=== PATIENT | female | born 1980 | race African-American/Black ===

== ENCOUNTER 2021-03-01 18:49 | Emergency (ER) | payer OTHER, SELFPAY ==
--- NOTE | ~2021-03-01 | XR_ITS ---
XR elbow RT min 3V 03/01/2021 19:26 INDICATION: Right elbow pain PROCEDURE: 4 views right elbow COMPARISON: No prior studies for comparison. FINDINGS: Fracture, dislocation or subluxation is not identified. The soft tissues appear within norm al limits. No foreign bodies are identified. IMPRESSION: 1: NO ACUTE BONE OR JOINT ABNORMALITY IDENTIFIED. 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
--- NOTE | ~2021-03-01 | XR_ITS ---
XR shoulder RT min 2V 03/01/2021 19:27 INDICATION: Right shoulder pain PROCEDURE: 4 views right shoulder COMPARISON: No prior studies for comparison. FINDINGS: Fracture, dislocation or subluxation is not identified. The soft tissues appear within norm al limits. No foreign bodies are identified. IMPRESSION: 1: NO ACUTE BONE OR JOINT ABNORMALITY IDENTIFIED. 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
--- NOTE | 2021-03-01 18:59 | ED.UPPEXIN ---
HPI - Extremity Injury (Upper) General Chief Complaint: Extremity Injury, Upper Stated Complaint: Right shoulder injury at work Time Seen by Provider: 03/01/21 18:59 Source: patient and RN notes reviewed Mode of arrival: ambulatory Limitations: no limitations History of Present Illness HPI narrative: 41-year-old female presents to the [facility] with complaints of right arm pain. States on Friday, 2 days ago an elevator door closed on her arm. Patient has full range of motion of the elbow and the shoulder. Also has full range of motion of the wrist. Strong flat surfacer jewel noted. Positive radial pulse noted. Capillary refill under 2 seconds. No bruising, redness, swelling noted on exam. Related Data Allergies Allergy/AdvReac Type Severity Reaction Status Date / Time No Known Allergies Allergy Verified 03/01/21 19:07 Review of Systems Review of Systems: All systems reviewed & are unremarkable except as noted in HPI and below Constitutional: Constitutional: Reports no additional constitutional complaints, Denies chills and Denies fever(s) Eyes: Eyes: Reports no additional eye complaints ENT: Reports system reviewed and no additional complaints, except as documented Cardiovascular: Cardiovascular: Reports no additional cardiovascular complaints and Denies chest pain Respiratory: Respiratory: Reports no additional respiratory complaints, Denies cough and Denies dyspnea Gastrointestinal: Gastrointestinal: Reports no additional gastrointestinal complaints Musculoskeletal: Musculoskeletal: Reports as per HPI Comments: Tenderness from mid forearm up into shoulder with palpation. Integumentary/Breasts: Skin/Breast: Reports system reviewed and no additional complaints, except as docu, Denies erythema and Denies rash Neurologic: Reports system reviewed and no additional complaints, except as documented Psychiatric: Psychiatric: Reports no additional psychiatric complaints Allergic/Immunologic: Allergic/Immunologic: Reports no additional allergic/immunologic complaints [facility] Past Medical History Medical History (Updated 03/01/21 @ 19:44 by Beth Story) Patient denies medical problems Surgical History Surgical History (Updated 03/01/21 @ 19:44 by Beth Story) No significant past surgical history Social History Social History (Updated 03/01/21 @ 19:44 by Beth Story) Living arrangements: with family Gender identity (if verbalized by the patient): Female Comments At the time of my signature, I reviewed and agree with the nursing past medical, surgical, social, and family history. There is no relevant family history pertinent to the patient complaint. Exam Const: General: healthy appearing, no acute distress and alert Nutritional Appearance: well nourished and obese Orientation/consciousness: patient oriented x3 Limitations: no limitations HENMT: Head: normal to inspection Eyes: Pupils: Equal, round and reactive pupils present Neck: Neck: normal visual inspection, no lymphadenopathy and no meningeal signs Chest: Chest palpation & inspection: normal inspection of the chest Resp: Effort & Inspection: normal respiratory effort and no use of accessory muscles Auscultation: clear to auscultation bilaterally, no crackles, no rales, no rhonchi and no wheezes Cardio: Rate: regular rate Rhythm: regular rhythm Back/Spine/Pelvis: Back: no CVA tenderness Skin: General skin exam: normal color, skin not dry and no erythema Lesions: no lesions Rashes: no rashes Trauma: no lacerations or abrasions, no abrasions, no lacerations and no punctures noted Wounds: no wounds Neuro: General: patient oriented x3, moves all extremities, no meningeal signs and no focal motor deficits Speech: normal speech Gait exam (Neuro): Normal gait present Extrem: General: normal to inspection Right upper extremity: full ROM, normal capillary refill, shoulder/upper arm normal to inspection, tenderness (Generalized) and normal ROM; no
[2021-03-01 19:00] VITALS: BP 143/68; PULSE 78; RESP 18; TEMP 36.7; O2SAT 100
== END 2021-03-01 19:47 | disposition home or self-care (01) ==
PROVIDERS: Emergency Provider Nurse Practitioner; PCP Family Medicine
DX: M79.601 Pain in right arm (principal)
CPT/HCPCS: 73030; 73080; 99214; G0463